=== PATIENT | female | born 1960 | race American Indian/Alaskan Native ===

== ENCOUNTER 2016-07-18 11:00 | Emergency (ER) | payer SELFPAY ==
[2016-07-18 11:39] VITALS: BP 128/88
[2016-07-18] MEDS ORDERED: FLEXERIL PO ONE (16:18)
[2016-07-18] MEDS ORDERED: MOTRIN PO ONE (16:18)
--- NOTE | 2016-07-18 16:45 | Emergency Department Report ---
HPI - HPI HPI: Patient is a 55-year-old female who presents to ED complaining of right lateral knee pain 1 day. Patient states yesterday she was at home in her kitchen working on the floor when she hit her knee on the floor. Patient states she's had throbbing sensation light pain on her lateral aspect of her knee since then. Patient denies any other trauma or injury to knee. Patient denies any radiation of pain to any other part of the body. Patient denies fever/chills/nausea/vomiting/abdominal pain/chest pain/shortness of breath/cough pain or any other problems <YARELIS CORRALES A - Last Filed: 07/18/16 16:18> <SAVANNAH SCHAFFER P - Last Filed: 07/18/16 19:51> - General Chief Complaint: Extremity Injury, Lower Time Seen by Provider: 07/18/16 16:00 ED Past Medical Hx - Past Medical History Previous Medical History?: Yes Hx Hypertension: Yes Hx Liver Disease: Yes (HEP C) Hx Arthritis: Yes Hx Kidney Stones: Yes Hx HIV: Yes Additional medical history: NEUROPATHY, Gallstones, hiv - Surgical History Past Surgical History?: Yes Additional Surgical History: TUBAL LIGATION. HYSTERECTOMY. TRACHEOSTOMY - Social History Smoking Status: Never Smoker Substance Use Type: Alcohol, Marijuana <YARELIS CORRALES A - Last Filed: 07/18/16 16:18> <SAVANNAH SCHAFFER P - Last Filed: 07/18/16 19:51> - Medications Home Medications: Home Medications Medication Instructions Recorded Confirmed Last Taken Type amLODIPine [Norvasc] 5 mg PO DAILY 04/28/15 09/09/15 09/08/15 20:00 History Linaclotide [Linzess] 290 mcg PO QDAY 05/07/15 09/09/15 05/07/15 History Promethazine [Phenergan TAB] 25 mg PO Q6HR PRN #20 tab 05/07/15 09/09/15 Unknown Rx oxyCODONE /ACETAMINOPHEN [Percocet 1 tab PO Q6HR PRN #20 tablet 05/07/15 Unknown Rx 5/325 mg] Dolutegravir Sodium [Tivicay] 50 mg PO QDAY 09/09/15 09/09/15 09/08/15 11:00 History Emtricitabin/Tenofovir [TRUVADA 1 tab PO QDAY 09/09/15 09/09/15 09/08/15 11:00 History 200-300 mg] HYDROcodone/APAP 5-325 [Elmer 1 each PO Q6HR PRN #16 tablet 09/09/15 Unknown Rx 5/325] Cyclobenzaprine [Flexeril 10 MG 10 mg PO QHS #30 tablet 07/18/16 Unknown Rx TAB] Ibuprofen [Motrin 800 MG tab] 800 mg PO Q8H #30 tablet 07/18/16 Unknown Rx ED Review of Systems ROS: Stated complaint: RT LEG PAIN Other details as noted in HPI Constitutional: denies: chills, fever Eyes: denies: eye pain, eye discharge, vision change ENT: denies: ear pain, throat pain, dental pain, hearing loss, congestion Respiratory: denies: cough, shortness of breath, wheezing Cardiovascular: denies: chest pain, palpitations Endocrine: no symptoms reported Gastrointestinal: denies: abdominal pain, nausea, vomiting, diarrhea, constipation, hematochezia Genitourinary: denies: urgency, dysuria, frequency, hematuria, discharge, abnormal menses Musculoskeletal: arthralgia. denies: back pain, joint swelling, myalgia Skin: denies: rash, lesions Neurological: denies: headache, weakness, numbness, paresthesias, confusion, abnormal gait Psychiatric: denies: anxiety, depression, auditory hallucinations, visual hallucinations, suicidal thoughts Hematological/Lymphatic: denies: easy bleeding, easy bruising <YARELIS CORRALES A - Last Filed: 07/18/16 16:18> ROS: Stated complaint: RT LEG PAIN Other details as noted in HPI <SAVANNAH SCHAFFER P - Last Filed: 07/18/16 19:51> Physical Exam - Physical Exam Vital Signs: Vital Signs 07/18/16 11:36 Temperature 97.5 F L Pulse Rate 87 Respiratory 20 Rate Blood Pressure 128/88 O2 Sat by Pulse 100 Oximetry Physical Exam: GENERAL: Alert and oriented x3, no apparent distress, Normal Gait, atraumatic. HEAD: Head is normocephalic and a-traumatic. EYES: Extra ocular muscles are intact. Pupils are equal, round, and reactive to light and accommodation. EARS: symetrical, atraumatic, non tender, ear canal clear and moderate cerumen, tympanic membrance non inflamed. gross auditory nml bilaterally. NOSE: Nose symetrical, Nontender,Nares appeared normal. MOUTH:Mouth is well hydrated and without lesions. Tonsils nonerythematous or swollen, Uvula midline, Tongue not elevated. Mucous membranes are moist. Posterior pharynx clear, no exudate or lesions. Patent airways. NECK: Supple. Non edematous, No carotid bruits. No lymphadenopathy or thyromegaly. LUNGS: Symetrical with respiration, No wheezing, no rales or crackles, CTAB. HEART: S1, S2 present, regular rate and rhythm without murmur, no rubs, no gallops. ABDOMEN: No organomegaly was noted,Positive bowel sounds, soft, and non- distended. . Nontender to palpation on all Quadrants, NO CVA tenderness. EXTREMITIES/MUSCULOSKELETAL: No cyanosis, clubbing, rash, lesions or edema. Full ROM bilaterally. UE/LE Pulses 2+ bilaterally. Lower extremity is 5+ strength bilaterally .No Calf tenderness bilaterally. No knee edema or erythema NEUROLOGIC: No focal Deficit, Cranial nerves II through XII are grossly intact. No loss of sensation, PSYCHIATRIC: Mood is congruent with affect, denies suicidal or homicidal ideations. SKIN: Warm and dry, No lesions, No ulceration or induration present. <YARELIS CORRALES A - Last Filed: 07/18/16 16:18> - Physical Exam Vital Signs: Vital Signs 07/18/16 07/18/16 11:36 16:25 Temperature 97.5 F L Pulse Rate 87 Respiratory 20 22 Rate Blood Pressure 128/88 O2 Sat by Pulse 100 Oximetry <SAVANNAH SCHAFFER P - Last Filed: 07/18/16 19:51> ED Course Vital Signs 07/18/16 11:36 Temperature 97.5 F L Pulse Rate 87 Respiratory 20 Rate Blood Pressure 128/88 O2 Sat by Pulse 100 Oximetry <YARELIS CORRALES - Last Filed: 07/18/16 16:18> Vital Signs 07/18/16 07/18/16 11:36 16:25 Temperature 97.5 F L Pulse Rate 87 Respiratory 20 22 Rate Blood Pressure 128/88 O2 Sat by Pulse 100 Oximetry <SAVANNAH SCHAFFER P - Last Filed: 07/18/16 19:51> ED Medical Decision Making - Medical Decision Making 55-year-old female presents with arthralgia of the right knee secondary to fall. ED course: Patient received 800 mg of Motrin and 10 mg of Flexeril. Patient reports feeling much better prior to discharge. Discussed the patient will follow up with primary care physician. Discussed with patient to rest the, apply heat 3 Times a day. Discussed the patient take medication as prescribed. Patient verbally states she understands and will comply to follow-up. <YARELIS CORRALES A - Last Filed: 07/18/16 16:18> Critical care attestation.: If time is entered above; I have spent that time in minutes in the direct care of this critically ill patient, excluding procedure time. <YARELIS CORRALES A - Last Filed: 07/18/16 16:18> Critical care attestation.: If time is entered above; I have spent that time in minutes in the direct care of this critically ill patient, excluding procedure time. <SAVANNAH SCHAFFER P - Last Filed: 07/18/16 19:51> ED Disposition Is pt being admited?: No Does the pt Need Aspirin: No Time of Disposition: 16:48 <YARELIS CORRALES A - Last Filed: 07/18/16 16:18> <SAVANNAH SCHAFFER P - Last Filed: 07/18/16 19:51> Disposition: DISCHARGED TO HOME OR SELFCARE Condition: Stable Instructions: Arthralgia (ED) Prescriptions: Cyclobenzaprine [Flexeril 10 MG TAB] 10 mg PO QHS #30 tablet Ibuprofen [Motrin 800 MG tab] 800 mg PO Q8H #30 tablet Referrals: PRIMARY CARE, [Primary Care Provider] - 3-5 Days MARIANN PRABHAKAR MD [Referring] - 3-5 Days MAAME BURGOS MD [Referring] - 3-5 Days [facility] [Outside] - 3-5 Days [facility] [Outside] - 3-5 Days [facility] [Outside] - 3-5 Days [facility] [Outside] - 3-5 Days
== END 2016-07-18 17:07 | disposition home or self-care (01) ==
LOC: ED 11:00
DX: M25.561 Pain in right knee (principal); I10 Essential (primary) hypertension; Z21 Asymptomatic human immunodeficiency virus [HIV] infection status
CPT/HCPCS: 99282